=== PATIENT | female | born 1945 | race Caucasian/White ===

== ENCOUNTER 2024-12-01 16:27 | Inpatient (IN) | payer MEDICARE, SELFPAY ==
[2024-12-01] VITALS (10 sets, daily range): BP systolic 104–139; BP diastolic 36–86; PULSE 89–94; BMI 26.2; BMI 26.5
--- NOTE | 2024-12-01 12:45 | ED.GENMED ---
History of Present Illness
General
Chief Complaint: Breathing Problem
Source: patient and spouse
Exam Limitations: none
Time Seen by Provider: 12/01/24 12:24
Nursing documentation reviewed up to this point in time: agreed with
History of Present Illness
History of Present Illness:
The patient is a 79-year-old female here for intermittent vomiting dark material, dark stools and SOB.
03/16: L TKR, [facility]
2 weeks later, fell and ruptured L patellar tendon
03/28: Patellar tendon rupture repair
according to the tendon repair didn't work and
10/25/24: Tendon allograft
11/24: Screw came loose and was repaired 4 days ago. Pt has thigh to ankle cast on LLE
DC'd from [facility] 2 days ago (11/29) Has felt intermittent SOB since.
Was vomiting frequently 11/29 and with general achiness, 'black oily' malodorous BMs per .
She has developed intermittent cough followed by retching and dark emesis yesterday but states she was eating chocolate prior to that
The patient reports that these symptoms have coincided with episodes of cognitive difficulties and 'feeling off,' such as difficulty comprehending messages while using the computer, and feelings of delusion, occurring intermittently since the
surgery.
Past History
Past History
ED Past Medical History: Hypothyroidism, Psychiatric (Anxiety/depression) and Other (Parkinson's)
ED Past Surgical History: Orthopedic
Review of Systems
Review of Systems
Allergies reviewed?: Yes
All Other Systems: ROS reviewed and negative except as documented in HPI and ROS
Constitutional: Denies fever
Respiratory: Reports cough (Intermittent) and other (Intermittent shortness of breath)
ABD/GI: Reports nausea, vomiting and black stools; Denies abdominal pain
: Denies dysuria or difficulty voiding
Musculoskeletal: Reports other (Cast on left lower extremity); Denies edema
Skin: Reports no symptoms
Neurological: Reports no symptoms
Phy Exam
Physical Exam
Physical Exam:
GENERAL: No acute distress. A&Ox3.
CONSTITUTIONAL: Afebrile.
EYES: clear, conjunctivae normal
ENMT: moist mucus membranes, Pharynx nl
RESPIRATORY: Regular respirations, nonlabored, lungs clear.
CARDIOVASCULAR: Regular rate and rhythm, no murmurs, no rubs.
GI: Soft, nontender, normal BS
Rectal: black, soft heme positive stool
MUSCULOSKELETAL: LLE in full length cast. Moves with ease. Well perfused. Feet warm sensation intact and equal to touch.
SKIN: Warm, dry, pink
PSYCH: Normal mood and affect. Well kept, interactive and appropriate
NEUROLOGIC: Awake, alert and oriented. No focal neurological deficits
Scores
Heart Failure Risk
Heart Failure Risk Score: Not Applicable
Course
Orders/Labs/Results
Orders:
Orders
12/01/24 12:54
Type+Screen Urgent
CMP [Comprehensive Metabolic Panel] Urgent
Complete Blood Count/With Diff Urgent
DDimer [D-Dimer] Urgent
Ferritin Urgent
Comment: ADD ON
Iron Urgent
Comment: ADD ON
Lipase Urgent
Total Iron Binding Urgent
Comment: ADD ON
12/01/24 13:15
ABO2 Routine
[employer] W[employer] Number:
Associate notified that ABO2 has been ordered: [id number]
Date: 12/01/24
Time: 13:10
Supervisor Gate Services ID: [id number]
12/01/24 13:47
CT Chest PE Study Urgent
Comment:
Reason For Exam: SOB, recent ortho surgery
12/01/24 13:48
IV Insert/Care/Rem.- Treatment PRN
12/01/24 13:49
Pantoprazole [Protonix IV] 80 mg IV NOW STA
12/01/24 14:08
Sterile Water [Sterile Water For Injection] 20 ml .ROUTE .STK-MED
12/01/24 14:19
Carbidopa/Levodopa [Sinemet 25-100] 2 tablet PO NOW STA
12/01/24 15:57
Add On- LAB Stat
Tests Added?: Fe, TIBC, ferritin
* Blood Bank Products Urgent
Blood Bank Products: *Packed RBC Leuko(PRBC's)
Quantity: 1
Transfuse Today: Yes
Reason: Anemia
12/01/24 15:58
GASTROINTESTINAL CONSULT Routine
Consulting Provider: Trisha Galeas
Was physician already notified: Yes
Reason for consult: melena, UGIB
12/01/24 16:03
Records Request [Obtain Records] As Directed
Dates of Information to be Released: November 2024
Type of Information Requested: Entire Record
Comment: recent hospitalization at [facility]
12/01/24 16:04
Echo 2D MMode Color/Doppler Urgent
Reason for Study: systolic murmur, CHF
12/01/24 16:11
Admit/Transfer Patient As Directed
Co-Sign Provider:
Level of Care: Inpatient admission
Assign to:: Telemetry
Physician / Group: Jennifer
Diagnosis: UGIB
Reason for Telemetry: Arrhythmia
Date to Stop Telemetry: 12/04/24
Time to Stop Telemetry: 11:00
Reason for Hospitalization: UGIB
Expected length of stay greater than two midnights?: Yes
ELOS- Estimated Length of Stay in days: 4
I certify the patient meets the requirements for IP care: Yes
PRN Pain Medication Management As Directed
May give lesser potent ordered pain med per pt: Yes
preference::
Protocol:: Medication orders for pain may be administered in a
manner that supports deferring to patient preference
when the pt is:
- Requesting an ordered lesser potent pain medication.
Least to most potent pain medications are defined
as: acetaminophen < NSAID < tramadol < opioids
(morphine, oxycodone, hydromorphone).
- Requesting a lesser dose of the same medication IF
ORDERED.
- Requesting a less intrusive route of administration
if both routes are prescribed by the provider (PO <
IV).
12/01/24 16:13
Code Status As Directed
Resuscitation Status: Full Code
12/04/24 11:00
DC Protocol for Telemetry ONCE
Abnormal Lab Results
12/01/24
12:54
WBC 15.5 H 10^3/uL
(4.8-10.8)
RBC 2.59 L 10^6/uL
(4.20-5.40)
Hgb 7.7 L g/dL
(12.0-16.0)
Hct 23.0 L %
(37.0-47.0)
RDW 14.6 H %
(11.5-14.5)
Abs Immat Gran (auto) 0.2 H 10^3/uL
(0-0.05)
Absolute Neuts (auto) 11.3 H 10^3/uL
(1.4-6.5)
Absolute Monos (auto) 1.3 H 10^3/uL
(0.1-0.6)
Immature Gran % 1.4 H %
(0-0.5)
Lymphocytes % 17.0 L %
(20.5-51.1)
D-Dimer 1.59 H ug/mlFEU
(0.00-0.50)
BUN 52 H mg/dl
(7-17)
Glucose 111 H mg/dl
(70-99)
Iron < 20 L ug/dl
(37-170)
Total Protein 5.9 L g/dl
(6.3-8.2)
Lipase 19 L U/L
(23-300)
Antibody Screen Positive A
(Negative)
12/01/24 12:54
12/01/24 12:54
Vital Signs
Initial and Last Documented VS:
Initial Vital Signs
Temp Pulse Resp BP Pulse Ox
98.0 F 103 18 105/86 99
12/01/24 11:59 12/01/24 11:59 12/01/24 11:59 12/01/24 11:59 12/01/24 11:59
Last Documented Vital Signs
Temp Pulse Resp BP Pulse Ox
98.0 F 93 22 116/69 94
12/01/24 11:59 12/01/24 14:05 12/01/24 14:05 12/01/24 14:05 12/01/24 14:15
Senior National Account Manager consulted with Physician
Senior National Account Manager consulted with physician?: Yes (Jaison)
MDM/Problems Addressed
Differential Diagnosis Includes:
PE, GI bleed
MDM/Problems Addressed:
The patient is a 79-year-old female here for intermittent vomiting dark material, dark stools and SOB.
03/16: L TKR, [facility]
2 weeks later, fell and ruptured L patellar tendon
03/28: Patellar tendon rupture repair
according to the tendon repair didn't work and
10/25/24: Tendon allograft
11/24: Screw came loose and was repaired 4 days ago. Pt has thigh to ankle cast on LLE
DC'd from [facility] 2 days ago (11/29) Has felt intermittent SOB since.
Was vomiting frequently 11/29 and with general achiness, 'black oily' malodorous BMs per .
She has developed intermittent cough followed by retching and dark emesis yesterday but states she was eating chocolate prior to that
The patient reports that these symptoms have coincided with episodes of cognitive difficulties and 'feeling off,' such as difficulty comprehending messages while using the computer, and feelings of delusion, occurring intermittently since the
surgery.
1:30 PM:
CBC: Hemoglobin 7.7 WBC 15.5
D-dimer was drawn by the RN and is elevated at 1.59 this may be from previous surgery
I feel this shortness of breath is probably due to her GI bleed and her anemia
No vomiting since arrival
3:[address] initially reviewed by myself with Dr. Blackwood: no PE
Plan: Admit to hospitalist with GI bleed
Hospitalist notified of admission.
*Pulse Oximetry
SaO2: 100
Nasal Cannula flow liters per minute: 2
Oxygen Mode of Delivery: Room air
Patient hypoxic: no
*Critical Care Note
Total Time (30-74mins, 75-104mins- exclusive of procedures): Not Applicable
ED Attending Note
-
Portions of this chart may have been created with voice recognition software.� Occasional wrong word or��sound alike� substitutions may have occurred due to the inherent limitations of voice recognition software.
Discharge Plan
Departure
Patient Disposition: Admit
Date of Disposition: 12/01/24
Time of Disposition: 15:20
Admit to: Med/Surg
Presentation/result/management discussed w/ accepting MD/DO: Hospitalist
Condition: Fair
Discharge Problem:
GI (gastrointestinal bleed)
Interventions
Interventions:
*Risk Screen - Suicide Last Done: 12/01/24 11:59
*General Assessment Last Done: 12/01/24 12:19
*Neglect/Abuse Screening Last Done: 12/01/24 11:59
*ED- Fall Risk Assessment Last Done: 12/01/24 12:19
*ED COVID-19 Vaccine History Last Done: 12/01/24 12:19
ED- Cardiac Assessment Last Done: 12/01/24 12:22
ED- Pulmonary Assessment Last Done: 12/01/24 12:22
[2024-12-01 13:09] LABS: Hematocrit 23.0 % (37.0-47.0); Hemoglobin 7.7 g/dL (12.0-16.0); Mean Corp Hgb Conc. 33.5 g/dL (33.0-37.0); Mean Corpuscular Volume 88.8 fL (81.0-99.0); Nucleated Red Blood Cells % 0 %; Platelet Count 374 10^3/uL (130-400); Red Cell Dist. Width 14.6 % (11.5-14.5)
[2024-12-01 13:25] LABS: D-Dimer 1.59 ug/mlFEU (0.00-0.50)
[2024-12-01 13:40] LABS: ALT (SGPT) < 10 U/L (0-35); AST (SGOT) 22 U/L (14-36); Albumin 3.9 g/dl (3.5-5.0); Alkaline Phosphatase 81 U/L (38-126); Blood Urea Nitrogen 52 mg/dl (7-17); Calcium 9.3 mg/dl (8.4-10.2); Carbon Dioxide 25 mmol/L (22-30); Chloride 104 mmol/L (98-107); Estimated Creatinine Clearance 52 ml/min; Glucose 111 mg/dl (70-99); Potassium 3.7 mmol/L (3.5-5.1); Sodium 138 mmol/L (135-145); Total Protein 5.9 g/dl (6.3-8.2); eGFR > 60.00
[2024-12-01 13:50] LABS: Lipase 19 U/L (23-300)
[2024-12-01] MEDS: PROTONIX IV 80 MG IV (14:12)
--- NOTE | 2024-12-01 14:25 | EDRN ---
Pt took own Sinemet dose
--- NOTE | 2024-12-01 15:36 | HPS.HSE ---
Family Physician
-
Family Physician:
Chief Complaint
-
Shortness of breath, coffee-ground emesis, melena
History of Present Illness
79 y/o F with PMHx:
Parkinson's disease
Essential hypertension
Depression
Hypothyroidism
CHF (unknown type)
L TKA
L Patellar tendon rupture repair s/p tendon allograft
L TKA 2 'loose screw' repaired 11/27/24 at [facility] (discharged 11/29/24)
Who presents with chief complaints of shortness of breath, 'dark' emesis, melena which began 2 days ago. She has also had intermittent difficulty with mentation since the surgery. She states she is felt 'off' intermittently. Today she reports
that she had trouble interpreting an email that she was reviewing. This led to her coming to the ER at the behest of her . She denies any prior history of GI bleeding. Currently denies chest pain, shortness of breath, abdominal pain,
lightheadedness, palpitations, rash, dysuria, strokelike symptoms, fever.
Medical History
Past Medical History
Past Medical History: Reports Other (as per HPI)
Past Surgical History: Reports Other (orthopedic, as per HPI)
Social History
Tobacco: Non-smoker
Alcohol: None
Drug: None
Family History
Family History: Not pertinent
Allergies / Home Medications
Allergies reflects when Allergies were last updated in [employer].
Home Medications with original date entered in [employer]
Allergy/Medication List:
Allergies
Allergy/AdvReac Type Severity Reaction Status Date / Time
ciprofloxacin (From Cipro) Allergy Rash Verified 12/01/24 12:05
sulfamethoxazole (From Allergy Rash Verified 12/01/24 12:05
Bactrim)
trimethoprim (From Bactrim) Allergy Rash Verified 12/01/24 12:05
Home Medications
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
bupropion HCl 150 mg 24 hr tablet, extended release (Wellbutrin XL) 150 mg PO DAILY 12/01/24
carbidopa 25 mg-levodopa 100 mg tablet 1 tab PO HS 12/01/24
carbidopa 25 mg-levodopa 100 mg tablet 2 tab PO TID@1000,1400,1800 12/01/24
carbidopa 25 mg-levodopa 100 mg tablet 2.5 tab PO DAILY@0500 12/01/24
carbidopa ER 50 mg-levodopa 200 mg tablet,extended release 2 tab PO HS 12/01/24
cholecalciferol (vitamin D3) 50 mcg (2,000 unit) tablet (Vitamin D3) 50 mcg PO DAILY 12/01/24
clonazepam 0.5 mg tablet 0.5 mg PO HS 12/01/24
fluoxetine 40 mg capsule 80 mg PO DAILY 12/01/24
liothyronine 5 mcg tablet (Cytomel) 10 mcg PO DAILY 12/01/24
losartan 25 mg tablet 25 mg PO DAILY 12/01/24
polyethylene glycol 3350 17 gram oral powder packet (Miralax) 8.5 g PO Q48H 12/01/24
therapeutic multivitamin 1 tab PO DAILY 12/01/24
thyroid (pork) 15 mg tablet ([place] Thyroid) 45 mg PO DAILY 12/01/24
torsemide 10 mg tablet 10 mg PO DAILY 12/01/24
Review of Systems
-
History Source: Patient
A 12 point ROS was completed and negative except as noted: Yes
Physical Exam
Vital Signs
Vital Signs
Temp Pulse Resp BP Pulse Ox
98.0 F 93 22 116/69 100
12/01/24 11:59 12/01/24 14:05 12/01/24 14:05 12/01/24 14:05 12/01/24 12:47
Physical Exam
General: Other (.)
Laboratory Results
-
12/01/24 12:54
12/01/24 12:54
Laboratory Results
Total Bilirubin 0.6 mg/dl (0.2-1.3) 12/01/24 12:54
AST 22 U/L (14-36) 12/01/24 12:54
ALT < 10 U/L (0-35) 12/01/24 12:54
Alkaline Phosphatase 81 U/L (38-126) 12/01/24 12:54
Lipase 19 U/L (23-300) L 12/01/24 12:54
Impression/Plan
-
Gen: NAD, AAOx3.
Eyes: EOMI, PERRLA, no scleral icterus.
Neck: supple.
CV: RRR, +S1/S2, 3/6 systolic murmur
Resp: CTAB, no rales, wheezes, or rhonchi.
Abd: +BS, soft, NT, ND
Skin: No rashes.
Neuro: CN 2-12 intact, non-focal.
Psych: Normal mood and affect.
CTA chest: No evidence of central pulmonary embolism. Prominent beam hardening artifact from extensive metal hardware throughout the thoracic spine limits evaluation of the more peripheral pulmonary arterial branches, particularly in the lower lobes
bilaterally. Subcentimeter low-attenuation hepatic lesion too small to characterize.
Melena, acute blood loss anemia:
-check Fe studies
-obtain outside records for baseline Hb
-H/H Q6H
-Protonix 80mg IV given in ER, cont with 40mg IV BID
-NPO except meds
-IVFs
-current Hb 7.7 and will likely drop further with IVFs. Transfuse 1U pRBCs empirically.
-c/s GI, likely will need EGD
h/o CHF:
-unknown type
-check echo (I called cardiac services and the echo will be done today)
-hold diuretic with GIB
Other problems:
Parkinson's disease: cont Sinemet
Essential hypertension: Hold home ARB with GIB
Depression: cont Prozac/Wellbutrin
Hypothyroidism: cont [place]/Cytomel
h/o L TKA, L Patellar tendon rupture repair s/p tendon allograft, L TKA 2 'loose screw' repaired 11/27/24 at [facility] (discharged 11/29/24)
FULL/RLE SCDs (cast on LLE)
[2024-12-01 16:25] LABS: Iron < 20 ug/dl (37-170)
[2024-12-01 16:30] LABS: Total Iron Binding Capacity 334 ug/dl (265-497)
--- NOTE | 2024-12-01 16:32 | CON.GI ---
Consultation
-
Date/Time Consultation Performed: 12/01/24
Performing Provider: Jonatan Madrigal MD
Reason for Consultation: coffee ground emesis, melena
Medical History
Chief Complaint / HPI
Chief Complaint: SOB
History of Present Illness:
The patient is a 79-year-old female with past medical history as noted who presents with shortness of breath. She recently had redo knee surgery this week at [facility], and noticed today that she was feeling more out of breath which prompted her to
come the emergency room. She was found to have a hemoglobin of 7.7, unclear what her baseline was postoperatively. She states that starting Wednesday she started to have black stools and episodes of emesis with coffee-ground material. She denies
any lightheadedness or dizziness related to this. She has not been taking any NSAIDs, and has never had GI bleeding in the past. She does not usually have any GI symptoms and denies any abdominal pain, change in bowel habits, fever, chills. She
is never seen a non destructive testing technician and has never had a colonoscopy. There is a history of CHF, though she states may be mitral valve prolapse, though this is unclear. Currently she denies any lightheadedness or dizziness.
Past Medical History
Past Medical History: Other (Parkinson's, hypertension, depression, possible CHF, hypothyroid)
Past Surgical History: Other (Recent repair of left knee at [place], patellar tendon rupture, left knee replacement)
Social History
Tobacco: Non-Smoker
Alcohol: None
Family History
Family History: Reviewed & Not Pertinent
Allergies / Home Medications
Allergy/AdvReac Type Severity Reaction Status Date / Time
ciprofloxacin (From Cipro) Allergy Rash Verified 12/01/24 12:05
sulfamethoxazole (From Allergy Rash Verified 12/01/24 12:05
Bactrim)
trimethoprim (From Bactrim) Allergy Rash Verified 12/01/24 12:05
�Medication �Instructions �Recorded
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
clavulanate 125 mg tablet
bupropion HCl 150 mg 24 hr tablet, 150 mg PO DAILY 12/01/24
extended release (Wellbutrin XL)
carbidopa 25 mg-levodopa 100 mg 1 tab PO HS 12/01/24
tablet
carbidopa 25 mg-levodopa 100 mg 2 tab PO TID@1000,1400,1800 12/01/24
tablet
carbidopa 25 mg-levodopa 100 mg 2.5 tab PO DAILY@0500 12/01/24
tablet
carbidopa ER 50 mg-levodopa 200 mg 2 tab PO HS 12/01/24
tablet,extended release
cholecalciferol (vitamin D3) 50 50 mcg PO DAILY 12/01/24
mcg (2,000 unit) tablet (Vitamin
D3)
clonazepam 0.5 mg tablet 0.5 mg PO HS 12/01/24
fluoxetine 40 mg capsule 80 mg PO DAILY 12/01/24
liothyronine 5 mcg tablet (Cytomel) 10 mcg PO DAILY 12/01/24
losartan 25 mg tablet 25 mg PO DAILY 12/01/24
polyethylene glycol 3350 17 gram 8.5 g PO Q48H 12/01/24
oral powder packet (Miralax)
therapeutic multivitamin 1 tab PO DAILY 12/01/24
thyroid (pork) 15 mg tablet 45 mg PO DAILY 12/01/24
([place] Thyroid)
torsemide 10 mg tablet 10 mg PO DAILY 12/01/24
Review of Systems
-
All other systems: A 12 pt ROS was Negative except as stated above in HPI
Vital Signs
Temp Pulse Resp BP Pulse Ox
98.0 F 93 22 116/69 94
12/01/24 11:59 12/01/24 14:05 12/01/24 14:05 12/01/24 14:05 12/01/24 14:15
Physical Exam
Exam
General: NAD
HEENT: MMM, anicteric, no lymphadenopathy
Heart: Regular, 3/6 systolic murmurs
Lungs: CTA bilaterally
Abdomen: normal bowel sounds, soft, no tenderness, no rebound or guarding, no masses, bruits or ascites
Extremeties: no edema
Skin: no rashes
Results
WBC 15.5 10^3/uL (4.8-10.8) H 12/01/24 12:54
Hgb 7.7 g/dL (12.0-16.0) L 12/01/24 12:54
Hct 23.0 % (37.0-47.0) L 12/01/24 12:54
MCV 88.8 fL (81.0-99.0) 12/01/24 12:54
Plt Count 374 10^3/uL (130-400) 12/01/24 12:54
Absolute Neuts (auto) 11.3 10^3/uL (1.4-6.5) H 12/01/24 12:54
Sodium 138 mmol/L (135-145) 12/01/24 12:54
Potassium 3.7 mmol/L (3.5-5.1) 12/01/24 12:54
Chloride 104 mmol/L (98-107) 12/01/24 12:54
Carbon Dioxide 25 mmol/L (22-30) 12/01/24 12:54
BUN 52 mg/dl (7-17) H 12/01/24 12:54
Creatinine 0.9 mg/dL (0.6-1.0) 12/01/24 12:54
Calcium 9.3 mg/dl (8.4-10.2) 12/01/24 12:54
Total Bilirubin 0.6 mg/dl (0.2-1.3) 12/01/24 12:54
AST 22 U/L (14-36) 12/01/24 12:54
ALT < 10 U/L (0-35) 12/01/24 12:54
Alkaline Phosphatase 81 U/L (38-126) 12/01/24 12:54
Lipase 19 U/L (23-300) L 12/01/24 12:54
Diagnostic Image Results:
Chest CT:
IMPRESSION:
No evidence of central pulmonary embolism.
Prominent beam hardening artifact from extensive metal hardware throughout the thoracic spine limits evaluation of the more peripheral pulmonary arterial branches, particularly in the lower lobes bilaterally.
Subcentimeter low-attenuation hepatic lesion too small to characterize.
Prior GI Procedures:
EGD:
Colonoscopy:
Assessment / Plan
-
1. GI bleed: With coffee-ground emesis and melena since Wednesday, though is overall hemodynamically stable, unclear what her baseline hemoglobin was postoperatively, likely secondary to peptic ulcer disease. At this point there are no signs of
brisk active bleeding. 1 unit PRBCs has been ordered, continue PPI, trend hemoglobin and supportive care. She is due for echo to help further define her possible CHF. Will plan EGD, possibly diagnostically Wednesday, sooner if signs of brisk active
bleeding.
-
-
Thank you for consultation and allowing me to participate in the patient's care. Please call the contract coordinator GI physician during the after hours with any questions or concerns.
[2024-12-01 16:56] LABS: Ferritin 30.6 ng/ml (11.1-264.0)
--- NOTE | 2024-12-01 17:33 | CM ---
CM reviewed chart and met with pt bedside in ED. Pt lives with her , recently moved to [facility], [facility].
Pt needs assistance with ADLs and personal care, has been WC bound since March following L TKR.
Had recent surgery on knee at [facility] 11/27. was discharged 11/29.
PCP: Neida Lemus
Pharmacy: [facility]
CM will continue to follow for discharge planning needs
[2024-12-01] MEDS: SINEMET 25-100 2 TABLET PO (18:40)
[2024-12-01 18:50] LABS: Hematocrit 21.3 % (37.0-47.0); Hemoglobin 6.9 g/dL (12.0-16.0)
[2024-12-01] MEDS: D5/0.45%NACL 1000 IV (19:50)
[2024-12-01] MEDS: NSS (PRESERVATIVE FREE) 10 ML IV (20:05)
[2024-12-01] MEDS: PROTONIX IV 40 MG IV (20:05)
[2024-12-01] MEDS: PROTONIX IV IV (20:05)
[2024-12-01] MEDS: AUGMENTIN 500 MG/125 MG 1 TABLET PO (21:03)
[2024-12-01] MEDS: SINEMET 25-100 1 TABLET PO (21:04)
[2024-12-01] MEDS: KLONOPIN 0.5 MG PO (21:04)
[2024-12-01] MEDS: SINEMET CR 50/200 (EXTENDED RELEASE) 2 TABLET PO (21:06)
[2024-12-02 03:00] VITALS: BP 107/69; BP 128/63; PULSE 86; PULSE 88
[2024-12-02 03:57] LABS: Hematocrit 24.0 % (37.0-47.0); Hematocrit 24.3 % (37.0-47.0); Hemoglobin 8.0 g/dL (12.0-16.0); Hemoglobin 8.1 g/dL (12.0-16.0); Mean Corp Hgb Conc. 33.8 g/dL (33.0-37.0); Mean Corpuscular Volume 89.9 fL (81.0-99.0); Platelet Count 319 10^3/uL (130-400); Red Cell Dist. Width 14.6 % (11.5-14.5)
[2024-12-02 04:23] LABS: Blood Urea Nitrogen 29 mg/dl (7-17); Calcium 9.3 mg/dl (8.4-10.2); Carbon Dioxide 26 mmol/L (22-30); Chloride 107 mmol/L (98-107); Estimated Creatinine Clearance 58 ml/min; Glucose 109 mg/dl (70-99); Potassium 3.5 mmol/L (3.5-5.1); Sodium 139 mmol/L (135-145); eGFR > 60.00
[2024-12-02] MEDS: SINEMET 25-100 2.5 TABLET PO (05:06)
[2024-12-02] MEDS: ARMOUR THYROID 45 MG PO (05:06)
[2024-12-02 07:00] VITALS: BP 121/59
[2024-12-02] MEDS: NSS (PRESERVATIVE FREE) 10 ML IV ×2 (08:22→20:05)
[2024-12-02] MEDS: D5/0.45%NACL 1000 IV (08:22)
[2024-12-02] MEDS: WELLBUTRIN XL (24 hour extended release) 150 MG PO (08:23)
[2024-12-02] MEDS: PROZAC 80 MG PO (08:23)
[2024-12-02] MEDS: PROTONIX IV 40 MG IV ×2 (08:24→20:05)
[2024-12-02] MEDS: CYTOMEL 10 MICROGRAM PO (08:24)
[2024-12-02] MEDS: DEMADEX 10 MG PO (08:24)
--- NOTE | 2024-12-02 08:52 | W.PN.GI.CBS2 ---
Today's Communication / Plan
-
Please see assessment and plan for details.
Assessment / Plan
-
1. GI bleed: With coffee-ground emesis and melena since Wednesday, though is overall hemodynamically stable, unclear what her baseline hemoglobin was postoperatively, likely secondary to peptic ulcer disease. At this point there are no signs of
brisk active bleeding. She has had no further vomiting, and only 1 small bowel movement, much less, BUN improved, hemodynamically stable. At this point we will continue PPI twice daily, will advance to full liquids for now and continue close
observation. Will plan EGD Wednesday diagnostically, sooner if signs of brisk active bleeding.
Subjective
Subjective
Date of Service: December 02, 2024
Patient feeling okay, no further vomiting, 1 small dark bowel movement overnight, much less than previous. Has been hemodynamically stable overnight, no abdominal pain, fever or chills. She received 1 unit PRBCs yesterday.
Objective
Data Reviewed
Laboratory Data:
Laboratory Results
12/02/24 03:39
Laboratory Results
Total Bilirubin 0.6 mg/dl (0.2-1.3) 12/01/24 12:54
AST 22 U/L (14-36) 12/01/24 12:54
ALT < 10 U/L (0-35) 12/01/24 12:54
Alkaline Phosphatase 81 U/L (38-126) 12/01/24 12:54
Lipase 19 U/L (23-300) L 12/01/24 12:54
Vital Signs and I&O:
Vital Signs
Temp Pulse Resp BP Pulse Ox
98.8 F 89 18 121/59 96
12/02/24 07:00 12/02/24 08:24 12/02/24 07:00 12/02/24 08:24 12/02/24 07:00
I&O
12/01/24 12/02/24 12/03/24
06:59 06:59 06:59
Intake Total 250 / 250
Balance 250 / 250
Physical Exam
Physical Exam
General: NAD
Abdomen: normal bowel sounds, soft, no tenderness, no masses or bruits, no ascites
--- NOTE | 2024-12-02 09:57 | W.PN.HOSP.TC ---
Today's Communication/Plan
-
see plan
Assessment / Plan
Assessment / Plan
Gen: NAD, AAOx3.
Eyes: EOMI, PERRLA, no scleral icterus.
Neck: supple.
CV: remains RRR, +S1/S2, 3/6 systolic murmur
Resp: CTAB anteriorly, no rales, wheezes, or rhonchi.
Abd: remains +BS, soft, NT, ND
Skin: No rashes.
Neuro: CN 2-12 intact, non-focal.
Psych: Normal mood and affect.
CTA chest: No evidence of central pulmonary embolism. Prominent beam hardening artifact from extensive metal hardware throughout the thoracic spine limits evaluation of the more peripheral pulmonary arterial branches, particularly in the lower lobes
bilaterally. Subcentimeter low-attenuation hepatic lesion too small to characterize.
Echo: Left ventricle is small in size.
Asymmetric septal hypertrophy.
Left ventricular ejection fraction is 65-70% by Wing's method of discs.
Normal right ventricular size and function.
Mild mitral regurgitation.
Mild aortic stenosis, mean 15 mmHg.
Mild tricuspid regurgitation.
Estimated PASP 41 mmHg.
No prior study available for comparison.
Melena, acute blood loss anemia:
-Fe deficient by Fe studies, start IV Fe
-H/H Q6H
-Protonix 80mg IV given in ER, cont with 40mg IV BID
-NPO except meds
-s/p IVFs
-s/p 1U pRBCs
-GI following
-Full liquids
-plan for EGD 12/04/24
Chronic HFpEF:
-echo above
-hold diuretic with GIB
Other problems:
Parkinson's disease: cont Sinemet
Essential hypertension: Hold home ARB with GIB and current BPs
Depression: cont Prozac/Wellbutrin
Hypothyroidism: cont [place]/Cytomel
h/o L TKA, L Patellar tendon rupture repair s/p tendon allograft, L TKA 2 'loose screw' repaired 11/27/24 at [facility] (discharged 11/29/24)
Pt's updated at bedside.
FULL/RLE SCDs (cast on LLE)
Anticipated Discharge: > 48 hours
Subjective/Interval History
-
Date of Service: December 02, 2024
Denies melena since admission. No new complaints.
Objective Data
-
Labs:
Laboratory Results
12/02/24 12/02/24 12/02/24
02:47 03:39 03:39
WBC 11.2 H
Hgb Cancelled 8.1 L 8.0 L
Hct Cancelled 24.0 L
Plt Count
Sodium
Potassium
Chloride
Carbon Dioxide
BUN
Creatinine
Glucose
Calcium
12/02/24 12/02/24 12/02/24
03:39 09:48 12:09
WBC
Hgb Pending Cancelled
Hct 24.3 L Pending Cancelled
Plt Count 319
Sodium 139
Potassium 3.5
Chloride 107
Carbon Dioxide 26
BUN 29 H
Creatinine 0.8
Glucose 109 H
Calcium 9.3
12/02/24
15:30
WBC
Hgb Pending
Hct Pending
Plt Count
Sodium
Potassium
Chloride
Carbon Dioxide
BUN
Creatinine
Glucose
Calcium
Vital Signs:
Vital Signs
Temp Pulse Resp BP Pulse Ox
98.8 F 89 18 121/59 96
12/02/24 07:00 12/02/24 08:24 12/02/24 07:00 12/02/24 08:24 12/02/24 07:00
I&O
12/01/24 12/02/24 12/03/24
06:59 06:59 06:59
Intake Total 250 / 250
Balance 250 / 250
[2024-12-02] MEDS: SINEMET 25-100 2 TABLET PO ×3 (10:18→18:49)
[2024-12-02 10:20] LABS: Hematocrit 22.9 % (37.0-47.0); Hemoglobin 7.6 g/dL (12.0-16.0)
[2024-12-02 11:00] VITALS: BP 121/61; BP 131/70; PULSE 85; PULSE 98
[2024-12-02] MEDS: FERRLECIT 110 MG IV (13:02)
[2024-12-02 15:00] VITALS: BP 117/62; BP 121/69; PULSE 105; PULSE 92
[2024-12-02 16:13] LABS: Hematocrit 22.3 % (37.0-47.0); Hemoglobin 7.3 g/dL (12.0-16.0)
[2024-12-02] MEDS: KLONOPIN 0.25 MG PO (18:53)
[2024-12-02 19:00] VITALS: BP 108/52; BP 143/65; PULSE 100; PULSE 88
[2024-12-02] MEDS: SINEMET 25-100 1 TABLET PO (21:08)
[2024-12-02] MEDS: SINEMET CR 50/200 (EXTENDED RELEASE) 2 TABLET PO (21:08)
[2024-12-02] MEDS: KLONOPIN 0.5 MG PO (21:08)
[2024-12-02] MEDS: AUGMENTIN 500 MG/125 MG 1 TABLET PO (21:08)
--- NOTE | 2024-12-02 22:29 | W.PN.UPDATE ---
Update Note
Progress Note Update
RN reports patient had few stools with blood in it after the last hemoglobin check, heme test positive, stable VS, patient asymptomatic, will check h&h at [place].
[2024-12-02 22:56] LABS: Hematocrit 22.2 % (37.0-47.0); Hemoglobin 7.3 g/dL (12.0-16.0)
[2024-12-02 23:00] VITALS: BP 107/51
[2024-12-03] MEDS: KLONOPIN 0.25 MG PO (00:47)
[2024-12-03 03:00] VITALS: BP 138/56
[2024-12-03] MEDS: ARMOUR THYROID 45 MG PO (05:14)
[2024-12-03] MEDS: SINEMET 25-100 2.5 TABLET PO (05:14)
[2024-12-03 06:17] LABS: Hematocrit 23.3 % (37.0-47.0); Hemoglobin 7.6 g/dL (12.0-16.0); Mean Corp Hgb Conc. 32.6 g/dL (33.0-37.0); Mean Corpuscular Volume 91.4 fL (81.0-99.0); Platelet Count 309 10^3/uL (130-400); Red Cell Dist. Width 14.7 % (11.5-14.5)
[2024-12-03 06:34] LABS: Blood Urea Nitrogen 11 mg/dl (7-17); Calcium 9.1 mg/dl (8.4-10.2); Carbon Dioxide 24 mmol/L (22-30); Chloride 109 mmol/L (98-107); Estimated Creatinine Clearance 67 ml/min; Glucose 83 mg/dl (70-99); Potassium 3.2 mmol/L (3.5-5.1); Sodium 139 mmol/L (135-145); eGFR > 60.00
[2024-12-03 07:30] VITALS: BP 134/66
--- NOTE | 2024-12-03 08:19 | W.PN.HOSP.TC ---
Addendum entered and electronically signed by Stanley Rodriguez MD 12/03/24 12:48:
Hypokalemia: 40meq K x 2 doses
Original Note:
Today's Communication/Plan
-
see plan
Assessment / Plan
Assessment / Plan
Gen: NAD, AAOx3.
Eyes: EOMI, PERRLA, no scleral icterus.
Neck: supple.
CV: remains RRR, +S1/S2, 3/6 systolic murmur
Resp: CTAB anteriorly, no rales, wheezes, or rhonchi.
Abd: remains +BS, soft, NT, ND
Skin: No rashes.
Neuro: CN 2-12 intact, non-focal.
Psych: Normal mood and affect.
CTA chest: No evidence of central pulmonary embolism. Prominent beam hardening artifact from extensive metal hardware throughout the thoracic spine limits evaluation of the more peripheral pulmonary arterial branches, particularly in the lower lobes
bilaterally. Subcentimeter low-attenuation hepatic lesion too small to characterize.
Echo: Left ventricle is small in size.
Asymmetric septal hypertrophy.
Left ventricular ejection fraction is 65-70% by Wing's method of discs.
Normal right ventricular size and function.
Mild mitral regurgitation.
Mild aortic stenosis, mean 15 mmHg.
Mild tricuspid regurgitation.
Estimated PASP 41 mmHg.
No prior study available for comparison.
Melena, acute blood loss anemia:
-Fe deficient by Fe studies, cont IV Fe
-Protonix 80mg IV given in ER, cont with 40mg IV BID
-s/p IVFs
-s/p 1U pRBCs, Hb 7.6
-GI following
-Full liquids
-plan for EGD 12/04/24
-H/H can be daily now unless pt has further evidence of bleeding
Chronic HFpEF:
-echo above
-holding diuretic with GIB
Other problems:
Parkinson's disease: cont Sinemet
Essential hypertension: Hold home ARB with GIB and current BPs
Depression/anxiety: cont Prozac/Wellbutrin/Klonopin
Hypothyroidism: cont [place]/Cytomel
h/o L TKA, L Patellar tendon rupture repair s/p tendon allograft, L TKA 2 'loose screw' repaired 11/27/24 at [place] (discharged 11/29/24)
Pt's daughter updated at bedside.
FULL/RLE SCDs (cast on LLE)
Anticipated Discharge: 24 - 48 hours
Subjective/Interval History
-
Date of Service: December 03, 2024
One BM yesterday that was moderately melanotic as per pt and RN. Currently denies CP/SOB/abd. States she had a panic attack overnight.
Objective Data
-
Labs:
Laboratory Results
12/02/24 12/03/24
22:50 05:41
WBC 10.6
Hgb 7.3 L 7.6 L
Hct 22.2 L 23.3 L
Plt Count 309
Sodium 139
Potassium 3.2 L
Chloride 109 H
Carbon Dioxide 24
BUN 11
Creatinine 0.7
Glucose 83
Calcium 9.1
Vital Signs:
Vital Signs
Temp Pulse Resp BP Pulse Ox
98.0 F 92 20 138/56 98
12/03/24 03:00 12/03/24 03:00 12/03/24 03:00 12/03/24 03:00 12/03/24 03:00
I&O
12/02/24 12/03/24 12/04/24
06:59 06:59 06:59
Intake Total 250 / 250
Balance 250 / 250
[2024-12-03] MEDS: D5/0.45%NACL 1000 IV (08:35)
[2024-12-03] MEDS: NSS (PRESERVATIVE FREE) 10 ML IV ×2 (08:47→20:59)
[2024-12-03] MEDS: PROTONIX IV 40 MG IV ×2 (08:48→20:59)
[2024-12-03] MEDS: PROZAC 80 MG PO (08:48)
[2024-12-03] MEDS: WELLBUTRIN XL (24 hour extended release) 150 MG PO (08:48)
[2024-12-03] MEDS: CYTOMEL 10 MICROGRAM PO (08:48)
--- NOTE | 2024-12-03 09:32 | W.PN.GI.CBS2 ---
Today's Communication / Plan
-
Please see assessment and plan for details.
Assessment / Plan
-
1. GI bleed: With coffee-ground emesis and melena since Wednesday, though is overall hemodynamically stable, unclear what her baseline hemoglobin was postoperatively, likely secondary to peptic ulcer disease. At this point there are no signs of
brisk active bleeding. She has had no further vomiting, green/brown stool last evening, BUN is normalized, hemodynamically stable. At this point we will continue PPI, full liquid diet for today, plan EGD tomorrow, sooner if signs of brisk active
bleeding.
Subjective
Subjective
Date of Service: December 03, 2024
Patient feeling well, had an episode of black stool yesterday though then followed by green/brown stool. No vomiting, tolerating full liquid without difficulty, no abdominal pain, fever or chills.
Objective
Data Reviewed
Laboratory Data:
Laboratory Results
12/03/24 05:41
12/03/24 05:41
Laboratory Results
Total Bilirubin 0.6 mg/dl (0.2-1.3) 12/01/24 12:54
AST 22 U/L (14-36) 12/01/24 12:54
ALT < 10 U/L (0-35) 12/01/24 12:54
Alkaline Phosphatase 81 U/L (38-126) 12/01/24 12:54
Lipase 19 U/L (23-300) L 12/01/24 12:54
Vital Signs and I&O:
Vital Signs
Temp Pulse Resp BP Pulse Ox
98.2 F 98 16 134/66 96
12/03/24 07:30 12/03/24 07:30 12/03/24 07:30 12/03/24 07:30 12/03/24 07:30
I&O
12/02/24 12/03/24 12/04/24
06:59 06:59 06:59
Intake Total 250 / 250
Balance 250 / 250
Physical Exam
Physical Exam
General: NAD
Abdomen: normal bowel sounds, soft, no tenderness, no masses or bruits, no ascites
[2024-12-03] MEDS: SINEMET 25-100 2 TABLET PO ×3 (09:51→18:03)
[2024-12-03] MEDS: ULTRAM 50 MG PO ×2 (11:12→18:03)
[2024-12-03 11:38] VITALS: BP 109/65
[2024-12-03] MEDS: KCL 40 MEQ PO ×3 (13:41→20:56)
[2024-12-03] MEDS: FERRLECIT 110 MG IV (13:41)
[2024-12-03] MEDS: KLONOPIN 0.5 MG PO ×2 (13:44→21:55)
[2024-12-03 15:51] VITALS: BP 133/86
[2024-12-03 20:30] VITALS: BP 127/50
[2024-12-03] MEDS: SINEMET 25-100 1 TABLET PO (20:55)
[2024-12-03] MEDS: SINEMET CR 50/200 (EXTENDED RELEASE) 2 TABLET PO (20:55)
[2024-12-03] MEDS: AUGMENTIN 500 MG/125 MG 1 TABLET PO (21:55)
[2024-12-03 23:58] VITALS: BP 127/56
[2024-12-04] VITALS (10 sets, daily range): BP systolic 20–140; BP diastolic 51–74
[2024-12-04] MEDS: ARMOUR THYROID 45 MG PO (05:34)
[2024-12-04] MEDS: SINEMET 25-100 2.5 TABLET PO (05:36)
[2024-12-04 06:34] LABS: Hematocrit 25.1 % (37.0-47.0); Hemoglobin 7.9 g/dL (12.0-16.0); Mean Corp Hgb Conc. 31.5 g/dL (33.0-37.0); Mean Corpuscular Volume 94.0 fL (81.0-99.0); Platelet Count 331 10^3/uL (130-400); Red Cell Dist. Width 15.2 % (11.5-14.5)
[2024-12-04 07:04] LABS: Blood Urea Nitrogen 7 mg/dl (7-17); Calcium 9.5 mg/dl (8.4-10.2); Carbon Dioxide 24 mmol/L (22-30); Chloride 114 mmol/L (98-107); Estimated Creatinine Clearance 67 ml/min; Glucose 78 mg/dl (70-99); Potassium 4.4 mmol/L (3.5-5.1); Sodium 140 mmol/L (135-145); eGFR > 60.00
[2024-12-04] MEDS: PROTONIX IV 40 MG IV ×2 (07:50→20:30)
[2024-12-04] MEDS: WELLBUTRIN XL (24 hour extended release) 150 MG PO (07:50)
[2024-12-04] MEDS: NSS (PRESERVATIVE FREE) 10 ML IV ×2 (07:50→20:29)
[2024-12-04] MEDS: PROZAC 80 MG PO (07:51)
[2024-12-04] MEDS: CYTOMEL 10 MICROGRAM PO (07:52)
[2024-12-04] MEDS: SINEMET 25-100 2 TABLET PO ×3 (10:21→17:13)
--- NOTE | 2024-12-04 12:00 | W.PN.HOSP.TC ---
Today's Communication/Plan
-
Monitor vital signs and see plan
Monitor hemoglobin
Continue with PPI
Trial of diet
Assessment / Plan
Assessment / Plan
Gen: NAD, AAOx3.
Eyes: EOMI, PERRLA, no scleral icterus.
Neck: supple.
CV: remains RRR, +S1/S2, 3/6 systolic murmur
Resp: CTAB anteriorly, no rales, wheezes, or rhonchi.
Abd: remains +BS, soft, NT, ND
Skin: No rashes.
Neuro: CN 2-12 intact, non-focal.
Psych: Normal mood and affect.
CTA chest: No evidence of central pulmonary embolism. Prominent beam hardening artifact from extensive metal hardware throughout the thoracic spine limits evaluation of the more peripheral pulmonary arterial branches, particularly in the lower lobes
bilaterally. Subcentimeter low-attenuation hepatic lesion too small to characterize.
Echo: Left ventricle is small in size.
Asymmetric septal hypertrophy.
Left ventricular ejection fraction is 65-70% by Wing's method of discs.
Normal right ventricular size and function.
Mild mitral regurgitation.
Mild aortic stenosis, mean 15 mmHg.
Mild tricuspid regurgitation.
Estimated PASP 41 mmHg.
No prior study available for comparison.
Melena, acute blood loss anemia:
-Fe deficient by Fe studies, cont IV Fe
-Protonix 80mg IV given in ER, cont with 40mg IV BID
-s/p 1U pRBCs, Hb 7.6
-GI following
-Full liquids
Status post EGD 12/04 with small hiatal hernia, nonbleeding gastric ulcer. PPI twice daily.
Monitor hemoglobin
Chronic HFpEF:
-echo above
-holding diuretic with GIB
Other problems:
Parkinson's disease: cont Sinemet
Essential hypertension: Hold home ARB with GIB and current BPs
Depression/anxiety: cont Prozac/Wellbutrin/Klonopin
Hypothyroidism: cont [place]/Cytomel
h/o L TKA, L Patellar tendon rupture repair s/p tendon allograft, L TKA 2 'loose screw' repaired 11/27/24 at [place] (discharged 11/29/24)
Pt's daughter updated at bedside.
FULL/RLE SCDs (cast on LLE)
Anticipated Discharge: Within 24 hours
Subjective/Interval History
-
Date of Service: December 04, 2024
Denies abdominal pain
Objective Data
-
Labs:
Laboratory Results
12/04/24
06:07
WBC 13.4 H
Hgb 7.9 L
Hct 25.1 L
Plt Count 331
Sodium 140
Potassium 4.4 D
Chloride 114 H
Carbon Dioxide 24
BUN 7
Creatinine 0.7
Glucose 78
Calcium 9.5
Vital Signs:
Vital Signs
Temp Pulse Resp BP Pulse Ox
98.1 F 95 18 140/61 98
12/04/24 11:02 12/04/24 11:02 12/04/24 11:02 12/04/24 11:02 12/04/24 11:02
I&O
12/03/24 12/04/24 12/05/24
06:59 06:59 06:59
Intake Total 720 / 720
Balance 720 / 720
--- NOTE | 2024-12-04 12:30 | CM ---
CM reviewed medical records. [facility]
PLAN: home no needs.
[2024-12-04] MEDS: FERRLECIT 110 MG IV (14:26)
[2024-12-04] MEDS: ULTRAM 50 MG PO (17:15)
[2024-12-04] MEDS: SINEMET 25-100 1 TABLET PO (20:31)
[2024-12-04] MEDS: SINEMET CR 50/200 (EXTENDED RELEASE) 2 TABLET PO (20:31)
[2024-12-04] MEDS: AUGMENTIN 500 MG/125 MG 1 TABLET PO (22:07)
[2024-12-04] MEDS: KLONOPIN 0.5 MG PO (22:07)
[2024-12-05 03:31] VITALS: BP 132/64
[2024-12-05] MEDS: SINEMET 25-100 2.5 TABLET PO (05:01)
[2024-12-05] MEDS: ARMOUR THYROID 45 MG PO (05:02)
[2024-12-05 06:00] VITALS: BMI 25.9
[2024-12-05 07:11] LABS: Hematocrit 24.6 % (37.0-47.0); Hemoglobin 7.9 g/dL (12.0-16.0); Mean Corp Hgb Conc. 32.1 g/dL (33.0-37.0); Mean Corpuscular Volume 95.0 fL (81.0-99.0); Nucleated Red Blood Cells % 0.2 %; Platelet Count 345 10^3/uL (130-400); Red Cell Dist. Width 15.8 % (11.5-14.5)
[2024-12-05 07:20] VITALS: BP 132/73
[2024-12-05 08:01] LABS: Blood Urea Nitrogen 7 mg/dl (7-17); Calcium 9.1 mg/dl (8.4-10.2); Carbon Dioxide 23 mmol/L (22-30); Chloride 112 mmol/L (98-107); Estimated Creatinine Clearance 67 ml/min; Glucose 93 mg/dl (70-99); Potassium 4.1 mmol/L (3.5-5.1); Sodium 137 mmol/L (135-145); eGFR > 60.00
[2024-12-05] MEDS: NSS (PRESERVATIVE FREE) 10 ML IV (08:05)
[2024-12-05] MEDS: PROTONIX IV 40 MG IV (08:05)
[2024-12-05] MEDS: WELLBUTRIN XL (24 hour extended release) 150 MG PO (08:06)
[2024-12-05] MEDS: PROZAC 80 MG PO (08:06)
[2024-12-05] MEDS: CYTOMEL 10 MICROGRAM PO (08:06)
[2024-12-05] MEDS: SINEMET 25-100 2 TABLET PO ×2 (10:24→13:34)
--- NOTE | 2024-12-05 10:32 | W.PN.HOSP.TC ---
Today's Communication/Plan
-
Monitor vital signs see plan
Continue to monitor hemoglobin, repeat CBC with primary care provider outpatient
Continue with PPI twice daily
Patient will follow-up with GI outpatient
Tolerating diet, discussed with nursing no further bleeding
Discharge today
Time of discharge 38 minutes
Assessment / Plan
Assessment / Plan
Gen: NAD, AAOx3.
Eyes: EOMI, PERRLA, no scleral icterus.
Neck: supple.
CV: remains RRR, +S1/S2, 3/6 systolic murmur
Resp: CTAB anteriorly, no rales, wheezes, or rhonchi.
Abd: remains +BS, soft, NT, ND
Skin: No rashes.
Neuro: CN 2-12 intact, non-focal.
Psych: Normal mood and affect.
CTA chest: No evidence of central pulmonary embolism. Prominent beam hardening artifact from extensive metal hardware throughout the thoracic spine limits evaluation of the more peripheral pulmonary arterial branches, particularly in the lower lobes
bilaterally. Subcentimeter low-attenuation hepatic lesion too small to characterize.
Echo: Left ventricle is small in size.
Asymmetric septal hypertrophy.
Left ventricular ejection fraction is 65-70% by Wing's method of discs.
Normal right ventricular size and function.
Mild mitral regurgitation.
Mild aortic stenosis, mean 15 mmHg.
Mild tricuspid regurgitation.
Estimated PASP 41 mmHg.
No prior study available for comparison.
Melena, acute blood loss anemia:
-Fe deficient by Fe studies, cont IV Fe
-Protonix 80mg IV given in ER, cont with 40mg IV BID
-s/p 1U pRBCs, Hb now 7.9. Discussed with nursing and there is no further bleeding
-GI following
Currently on regular diet
Status post EGD 12/04 with small hiatal hernia, nonbleeding gastric ulcer. PPI twice daily. Patient will follow with gastroenterology outpatient
Monitor hemoglobin
Chronic HFpEF:
-echo above
- Restart diuretic
Other problems:
Parkinson's disease: cont Sinemet
Essential hypertension: Hold home ARB with GIB and current BPs
Depression/anxiety: cont Prozac/Wellbutrin/Klonopin
Hypothyroidism: cont [place]/Cytomel
h/o L TKA, L Patellar tendon rupture repair s/p tendon allograft, L TKA 2 'loose screw' repaired 11/27/24 at [place] (discharged 11/29/24)
FULL/RLE SCDs (cast on LLE)
Anticipated Discharge: Today
Subjective/Interval History
-
Date of Service: December 05, 2024
Denies pain
Objective Data
-
Labs:
Laboratory Results
12/05/24
06:42
WBC 16.7 H
Hgb 7.9 L
Hct 24.6 L
Plt Count 345
Sodium 137
Potassium 4.1
Chloride 112 H
Carbon Dioxide 23
BUN 7
Creatinine 0.7
Glucose 93
Calcium 9.1
Vital Signs:
Vital Signs
Temp Pulse Resp BP Pulse Ox
98.4 F 98 20 132/73 95
12/05/24 07:20 12/05/24 07:20 12/05/24 07:20 12/05/24 07:20 12/05/24 07:20
I&O
12/04/24 12/05/24 12/06/24
06:59 06:59 06:59
Intake Total 720 / 720 930 / 930
Balance 720 / 720 930 / 930
--- NOTE | 2024-12-05 10:39 | W.DCSUMMARY ---
Discharge Summary
Discharge Data
Date of Admission: 12/01/24
Date of Discharge: 12/05/24
-
Pending Results: No
Hospital Course
79-year-old female with past medical history of CHF, Parkinson's disease, essential hypertension, depression, anxiety, hypothyroidism, history of left TKA, left patellar tendon rupture repair came to the hospital with acute blood loss anemia
secondary to melena. Patient was seen by gastroenterology and was taken for endoscopy which showed small hiatal hernia, nonbleeding gastric ulcer. It was determined that patient symptoms could likely be secondary to the gastric ulcer.
Gastroenterology recommended patient to be put on PPI twice daily and to follow-up with them closely outpatient. Upon discharge her blood pressure was still on the lower side so her losartan was held. Once her symptoms continue to improve, she was
then discharged home with instructions to follow-up with all her physicians outpatient.
Discharge Plan
-
Patient Disposition: Home (Routine Discharge)
Discharge Diagnosis/Procedures: Melena, acute blood loss anemia likely secondary to gastric ulcer
Diet: As tolerated
Activity: As tolerated
Driving Restrictions: As prior to admission
Bathing Restrictions: None
Blood Work: CBC later this week or next week with primary care provider
Activity Restrictions/Additional Instructions:
Avoid NSAIDs
Follow-up with pathology results with gastroenterology
Referrals:
Jordan Madrigal MD [Active, Gastroenterology] - 01/04/25 1:30 pm
Neida Lemus MD [Family Provider, General] - in less than 1 week
Prescriptions:
New
pantoprazole [Protonix] 40 mg tablet,delayed release (DR/EC)
40 mg PO BID Qty: 60 0RF
Continued
fluoxetine 40 mg Capsule
80 mg PO DAILY
clonazepam 0.5 mg Tablet
0.5 mg PO HS
carbidopa-levodopa 50-200 mg Tablet Extended Release
2 tab PO HS
torsemide 10 mg Tablet
10 mg PO DAILY
therapeutic multivitamin Tablet
1 tab PO DAILY
liothyronine [Cytomel] 5 mcg Tablet
10 mcg PO DAILY
carbidopa-levodopa 25-100 mg Tablet
2 tab PO TID@1000,1400,1800
carbidopa-levodopa 25-100 mg Tablet
1 tab PO HS
carbidopa-levodopa 25-100 mg Tablet
2.5 tab PO DAILY@0500
amoxicillin-pot clavulanate 500-125 mg tablet
1 tab PO HS
bupropion HCl [Wellbutrin XL] 150 mg Tablet Extended Release 24 Hr
150 mg PO DAILY
cholecalciferol (vitamin D3) [Vitamin D3] 50 mcg (2,000 unit) Tablet
50 mcg PO DAILY
thyroid (pork) [[place] Thyroid] 15 mg Tablet
45 mg PO DAILY
Changed
polyethylene glycol 3350 [Miralax] 17 gram Powder In Packet
8.5 g PO Q48H PRN (Reason: Constipation) Qty: 0 0RF
Held
losartan 25 mg Tablet
25 mg PO DAILY
Hold Instructions: Restart when blood pressure greater than 140/90
Discharge Orders:
Discharge Patient (As Directed); Ordered 12/05/24
Ordered By: Lambert Degroot
Discharge Date and Time
Discharge Date/Time: 12/05/24 15:36
Print Language: [place] CITIZ[place]
[2024-12-05 11:23] VITALS: BP 126/70; PULSE 100; O2SAT 98
[2024-12-05 11:25] VITALS: BP 120/64
[2024-12-05] MEDS: KLONOPIN 0.5 MG PO (11:25)
[2024-12-05] MEDS: FERRLECIT 110 MG IV (13:03)
--- NOTE | 2024-12-05 13:43 | CM ---
Plan is to home with [facility].
[facility]
== END 2024-12-05 15:36 | disposition home health service (06) | DRG 811 ==
LOC: 4 WEST ACU 16:27
PROVIDERS: Nurse Practitioner Gerontology; Registered Nurse; ADMITTING PHYSICIAN Internal Medicine; ATTENDING PHYSICIAN Internal Medicine; EMERGENCY PHYSICIAN Emergency Medicine; FAMILY PHYSICIAN Internal Medicine; OTHER PHYSICIAN Internal Medicine Gastroenterology
PROC: 30233N1 Transfusion of Nonautologous Red Blood Cells into Peripheral Vein, Percutaneous Approach (ICD-10-PCS; 2024-12-01)
PROC: 0DB68ZX Excision of Stomach, Via Natural or Artificial Opening Endoscopic, Diagnostic (ICD-10-PCS; 2024-12-04)
DX: D62 Acute posthemorrhagic anemia (principal); K25.4 Chronic or unspecified gastric ulcer with hemorrhage; I50.32 Chronic diastolic (congestive) heart failure; K44.9 Diaphragmatic hernia without obstruction or gangrene; G20.A1 Parkinson's disease without dyskinesia, without mention of fluctuations; I11.0 Hypertensive heart disease with heart failure; F32.A Depression, unspecified; E03.9 Hypothyroidism, unspecified; Z96.652 Presence of left artificial knee joint; Z88.1 Allergy status to other antibiotic agents; Z79.899 Other long term (current) drug therapy; K59.00 Constipation, unspecified; F41.9 Anxiety disorder, unspecified
CPT/HCPCS: 71275; 80048; 80053; 82728; 83540; 83550; 83690; 85014; 85018; 85025; 85027; 85379; 86850; 86870; 86900; 86901; 86902; 86905; 86920; 86922; 88305; 88342; 93306; 96374; 97163; 99285; J2916; P9016; Q9967